=== PATIENT | female | born 1945 | race Caucasian/White ===

== ENCOUNTER → 2016-07-28 | Outpatient (CLI) | payer OTHER, MEDICARE ==
[~2016-07-28] VITALS: Ht 167.6 cm; Wt 81.6 kg
[~2016-07-28] MED LIST: CALTRATE 600 +1 EAC1 PO; CYANOCOBALAM1000 MCG PO; DICLOFENAC SODI75 MG PO; ESCITALOPRAM OX20 MG PO; LOSARTAN POTAS100 MG PO; LOSARTAN POTASS25 MG PO; LOSARTAN POTASS50 MG PO; MECLIZINE HCL25 MG PO; MELATONIN10 M1 PO; NAPROSYN-EC500 MG PO; PROTONIX40 MG PO; SIMVASTATIN20 M1 PO; VALIUM5 MG PO
== END | disposition home or self-care (01) ==
LOC: AMB 12:24
DX: Z12.11 Encounter for screening for malignant neoplasm of colon (principal); D12.3 Benign neoplasm of transverse colon; K21.9 Gastro-esophageal reflux disease without esophagitis; Z80.0 Family history of malignant neoplasm of digestive organs; K29.70 Gastritis, unspecified, without bleeding; K25.9 Gastric ulcer, unspecified as acute or chronic, without hemorrhage or perforation; K44.9 Diaphragmatic hernia without obstruction or gangrene; I10 Essential (primary) hypertension; Z82.49 Family history of ischemic heart disease and other diseases of the circulatory system; Z82.62 Family history of osteoporosis; Z82.3 Family history of stroke
CPT/HCPCS: 88305; 88342 TC; 93005

== ENCOUNTER 2017-12-20 11:15 | Emergency (ER) | payer OTHER, MEDICARE ==
[~2017-12-20] VITALS: Ht 167.6 cm; Wt 83.2 kg
[~2017-12-20 11:15] MED LIST changes: +HYDROCHLOROTH12.5 M3 PO; +OMEGA 3 500 SO1 EACH PO
[2017-12-20 12:35] LABS: BASOPHIL (%) 0.9 % (0-1); BASOPHIL COUNT 0.1 K/uL (0-0.1); EOSINOPHIL (%) 2.7 % (0-5); EOSINOPHIL COUNT 0.2 K/uL (0-0.3); HEMATOCRIT 42.8 % (36.0-46.0); HEMOGLOBIN 14.9 G/DL (11.9-15.5); IMMATURE GRANULOCYTE (%) 0.3 % (0.0-0.7); LYMPHOCYTE (%) 37.5 % (15-42); LYMPHOCYTE COUNT 2.5 K/uL (1.0-2.8); MCH 32.5 PG (29.0-34.0); MCHC 34.8 G/DL (30.0-36.0); MCV 93.4 FL (83-99); MONOCYTE (%) 8.6 % (3-12); MONOCYTE COUNT 0.6 K/uL (0-0.8); NEUTROPHIL COUNT 3.4 K/uL (1.8-6.4); PLATELET COUNT 294 K/uL (156-360); RBC DIS.WIDTH-CV 11.5 % (11.8-14.6); RBC DIS.WIDTH-SD 39.4 % (39-53); RED BLOOD COUNT 4.58 M/uL (3.80-5.20); WHITE BLOOD COUNT 6.7 K/uL (4.1-10.2)
[2017-12-20 12:43] LABS: CHLORIDE 102 mEq/L (99-109); POTASSIUM 3.3 mEq/L (3.7-5.4); SODIUM 143 mEq/L (136-147)
[2017-12-20 12:45] LABS: GLUCOSE 90 mg/dL (70-99)
[2017-12-20 12:49] LABS: GFR ESTIMATE (CALCULATED) 58 mL/min/
[2017-12-20 12:50] LABS: UREA NITROGEN (BUN) 16 mg/dL (9-23)
[2017-12-20] MEDS ORDERED: KEFLEX500 MG PO (13:41)
[2017-12-20 14:18] VITALS: BP 127/88
== END 2017-12-20 14:19 | disposition home or self-care (01) ==
LOC: EME 11:15
PROVIDERS: Emergency Medicine
DX: L03.114 Cellulitis of left upper limb (principal); S60.562A Insect bite (nonvenomous) of left hand, initial encounter; W57.XXXA Bitten or stung by nonvenomous insect and other nonvenomous arthropods, initial encounter; Z88.0 Allergy status to penicillin
CPT/HCPCS: 73130; 80048; 85025; 99281; 99283